=== PATIENT | female | born 1995 | race Caucasian/White ===

== ENCOUNTER 2018-07-03 23:12 | Emergency (ER) | payer OTHER ==
[~2018-07-03] VITALS: Ht 157.5 cm; Wt 60.8 kg
[2018-07-03 23:55] VITALS: Ht 157.5 cm; Wt 60.8 kg
[2018-07-04 00:51] VITALS: BP 104/75
== END 2018-07-04 00:51 | disposition home or self-care (01) ==
LOC: ED 23:12
DX: S01.91XA Laceration without foreign body of unspecified part of head, initial encounter (principal); Z97.5 Presence of (intrauterine) contraceptive device; W22.8XXA Striking against or struck by other objects, initial encounter; Y93.89 Activity, other specified; Y92.89 Other specified places as the place of occurrence of the external cause; Y99.8 Other external cause status